=== PATIENT | female | born 1990 | race Caucasian/White ===

== ENCOUNTER 2020-11-18 21:38 | Emergency (ER) | payer MEDICAID ==
[~2020-11-18] VITALS: Ht 162.6 cm; Wt 88.5 kg
--- NOTE | 2020-11-18 21:52 | NUR ---
pt bibself c/o left flank pain that radiates to left groin since 0900 this morning with nausea. Pt aaox4 breathing evenly and unlabored. Pt skin is warm, dry, and intact. Pt attached to monitor and pox. rt hand 20g initated.Blood obtained and sent to lab. pt given blanket and call light within reach
[2020-11-18] MEDS ORDERED: ONDANSETRON HCL/PF 4 MG/2 ML VIAL ONE (22:22)
[2020-11-18] MEDS ORDERED: KETOROLAC TROMETHAMINE INJ 30 MG/ML VIAL ONE (22:23)
[2020-11-18] MEDS ORDERED: IV NS 0.9% 1,000 ML BAG IV ONE (22:30)
[2020-11-18] MEDS ORDERED: ONDANSETRON HCL/PF 4 MG/2 ML VIAL IV ONE (22:30)
[2020-11-18] MEDS ORDERED: KETOROLAC TROMETHAMINE INJ 30 MG/ML VIAL IV ONE (22:30)
[2020-11-18 22:40] LABS: BASOPHILS # (AUTO) 0.1 /CMM (0.0-0.2); BASOPHILS % (AUTO) 1.2 % (0.0-2.0); EOSINOPHILS % (AUTO) 2.3 % (0.0-6.0); HEMATOCRIT 39 % (33-45); HEMOGLOBIN 13.6 g/dL (11.5-14.8); LYMPHOCYTES # (AUTO) 4.2 /CMM (0.8-4.8); LYMPHOCYTES % (AUTO) 42.4 % (20.0-44.0); MEAN CORPUSCULAR HGB CONC 35 g/dl (31.0-36.0); MEAN CORPUSCULAR VOLUME 95 fL (82-100); MONOCYTES # (AUTO) 0.7 /CMM (0.1-1.30); MONOCYTES % (AUTO) 7.1 % (2.0-12.0); NEUTROPHILS # (AUTO) 4.7 /CMM (1.8-8.9); PLATELET COUNT (AUTO) 302 /CMM (150-450); RED BLOOD CELL COUNT(AUTO) 4.17 MIL/uL (4.0-5.2)
--- NOTE | 2020-11-18 22:41 | NUR ---
called lab for f/u urine results.
[2020-11-18 22:47] LABS: BILIRUBIN,URINE NEGATIVE (NEGATIVE); COLOR,URINE YELLOW (YELLOW); LEUKOCYTE ESTERASE ,URINE NEGATIVE (NEGATIVE); NITRITE, URINE NEGATIVE (NEGATIVE); PH,URINE 5.5 (5.0-8.0); PROTEIN,URINE 30 mg/dl (NEGATIVE); UGLUCOSE NEGATIVE (NEGATIVE); UROBILINOGEN,URINE 0.2 EU/dL (0.2)
[2020-11-18 22:58] LABS: CALCIUM, SERUM 9.1 mg/dL (8.5-10.1); CREATININE 0.9 mg/dL (0.6-1.3); POTASSIUM 3.5 mmol/L (3.5-5.1)
[2020-11-18 23:10] LABS: BILIRUBIN,DIRECT 0.1 mg/dL (0.0-0.2); BILIRUBIN,TOTAL 0.3 mg/dL (0.2-1.0); TOTAL PROTEIN, SERUM 7.4 g/dL (6.4-8.2)
--- NOTE | 2020-11-18 23:16 | NUR ---
CALLED LAB REGARDING BLOOD WORK.
[2020-11-18 23:25] LABS: RBC,URINE 51-80 /HPF (0-2)
[2020-11-18 23:26] LABS: BACTERIA,URINE Moderate /HPF (None Seen); MUCUS,URINE Moderate /LPF (None Seen); SQUAMOUS EPITHELIAL CELL,UR Moderate /HPF (None Seen)
--- NOTE | 2020-11-18 23:32 | NUR ---
taken to ct
--- NOTE | 2020-11-18 23:38 | NUR ---
returned from ct
[2020-11-19] MEDS ORDERED: HYDR-4303 PO (00:02)
--- NOTE | 2020-11-19 00:34 | NUR ---
Patient discharged to home in stable condition. Written and verbal after care instructions given. Patient verbalizes understanding of instruction. IV removed. Catheter intact and site benign. Pressure and 4x4 applied to site. No bleeding noted. Pt ambulatory with a steady gait
[2020-11-19 00:39] VITALS: BP 124/85
== END 2020-11-19 00:34 | disposition home or self-care (01) ==
LOC: ER 21:38
DX: R10.32 Left lower quadrant pain (principal); Z91.040 Latex allergy status
CPT/HCPCS: 36415; 74176; 80048; 80076; 81001; 83690; 84703; 85025; 87086; 96361; 96374; 96375; 99284; J1885; J2405; J7030

== ENCOUNTER 2021-02-09 10:02 | Emergency (ER) | payer OTHER ==
[~2021-02-09] VITALS: Ht 162.6 cm; Wt 95.3 kg
[~2021-02-09 10:02] MED LIST: HYDR-4303 PO
[2021-02-09 10:13] VITALS: BP 126/83
[2021-02-09] MEDS ORDERED: ACETAMINOPHEN ES 500 MG TABLET ONE (10:43)
[2021-02-09] MEDS ORDERED: IBUPROFEN 600 MG TABLET ONE (10:44)
[2021-02-09] MEDS ORDERED: IBUPROFEN 600 MG TABLET PO ONE (11:00)
[2021-02-09] MEDS ORDERED: ACETAMINOPHEN ES 500 MG TABLET PO ONE (11:00)
--- NOTE | 2021-02-09 11:52 | NUR ---
Patient discharged to home in stable condition. Written and verbal after care instructions given. Patient verbalizes understanding of instruction.
== END 2021-02-09 11:52 | disposition home or self-care (01) ==
LOC: ER 10:09
DX: M51.36 Other intervertebral disc degeneration, lumbar region (principal); Z91.040 Latex allergy status
CPT/HCPCS: 72110-TC; 84703-TC

== ENCOUNTER 2021-07-01 16:49 | Emergency (ER) | payer OTHER ==
[~2021-07-01] VITALS: Ht 162.6 cm; Wt 90.7 kg
[2021-07-01 17:10] VITALS: BP 132/84
[2021-07-01] MEDS ORDERED: ACETAMINOPHEN 325 MG TABLET ONE (17:39)
--- NOTE | 2021-07-01 17:48 | NUR ---
DPatient discharged to home in stable condition. Written and verbal after care instructions given. Patient verbalizes understanding of instruction.
[2021-07-01] MEDS ORDERED: ACETAMINOPHEN 325 MG TABLET PO ONE (18:00)
== END 2021-07-01 17:48 | disposition home or self-care (01) ==
LOC: ER 17:04
DX: U07.1 COVID-19 (principal); Z20.822 Contact with and (suspected) exposure to COVID-19; J45.909 Unspecified asthma, uncomplicated; Z91.040 Latex allergy status
CPT/HCPCS: 87426; 87804; 99283; C9803; U0003

== ENCOUNTER 2021-12-15 06:44 | Emergency (ER) | payer OTHER ==
[~2021-12-15] VITALS: Ht 162.6 cm; Wt 90.7 kg
--- NOTE | 2021-12-15 07:03 | NUR ---
BIBS C/O CHRONIC BACK PAIN SINCE FRIDAY. [employer] NO RELIEF. PATIENT ALERT AND ORIENTED X3. AMBULATORY WITH NON LABORED BREATHING IN BED 02 AWAITING MD GANT.
[2021-12-15] MEDS ORDERED: KETOROLAC TROMETHAMINE 15 MG/ML VIAL ONE (07:20)
[2021-12-15] MEDS ORDERED: HYDROCODONE/APAP 5/325MG TABLET ONE (07:21)
[2021-12-15] MEDS ORDERED: CYCLOBENZAPRINE 10 MG TABLET ONE (07:21)
[2021-12-15] MEDS ORDERED: HYDR-4303 PO (07:29)
[2021-12-15] MEDS ORDERED: CYCL5TAB PO (07:29)
[2021-12-15] MEDS ORDERED: PRED20TA PO (07:29)
[2021-12-15] MEDS ORDERED: HYDROCODONE/APAP 5/325MG TABLET PO ONE (07:30)
[2021-12-15] MEDS ORDERED: KETOROLAC TROMETHAMINE INJ 30 MG/ML VIAL IM ONE (07:30)
[2021-12-15] MEDS ORDERED: CYCLOBENZAPRINE 10 MG TABLET PO ONE (07:30)
--- NOTE | 2021-12-15 07:42 | NUR ---
Patient discharged to home in stable condition. Written and verbal after care instructions given. Patient verbalizes understanding of instruction.
[2021-12-15 07:44] VITALS: BP 117/82
== END 2021-12-15 07:44 | disposition home or self-care (01) ==
LOC: ER 06:48
DX: G89.29 Other chronic pain (principal); M54.41 Lumbago with sciatica, right side; M51.36 Other intervertebral disc degeneration, lumbar region; J45.909 Unspecified asthma, uncomplicated; Z88.8 Allergy status to other drugs, medicaments and biological substances; Z79.899 Other long term (current) drug therapy
CPT/HCPCS: 96372; 99283; J1885

== ENCOUNTER 2022-05-12 19:59 | Emergency (ER) | payer OTHER ==
[~2022-05-12] VITALS: Ht 162.6 cm; Wt 88.5 kg
[~2022-05-12 19:59] MED LIST changes: +CYCL5TAB PO; +PRED20TA PO
--- NOTE | 2022-05-12 20:45 | NUR ---
BIBS c/o headache 3 hours [employer] 7/10 pain scale.
--- NOTE | 2022-05-12 20:47 | NUR ---
URINE SAMPLE SENT TO LAB
[2022-05-12] MEDS ORDERED: KETOROLAC TROMETHAMINE INJ 30 MG/ML VIAL IV ONE (22:00)
[2022-05-12] MEDS ORDERED: PROCHLORPERAZINE EDISYLATE 10 MG/2 ML VIAL IVP ONE (22:00)
[2022-05-12] MEDS ORDERED: IV NS 0.9% 1,000 ML IV ONE (22:00)
[2022-05-12] MEDS ORDERED: diphenhydrAMINE HCL 50 MG/ML VIAL IV ONE (22:00)
--- NOTE | 2022-05-12 22:41 | NUR ---
RHAND IV #20G INSERTED
[2022-05-12] MEDS ORDERED: diphenhydrAMINE HCL 50 MG/ML VIAL ONE (22:47)
[2022-05-12] MEDS ORDERED: KETOROLAC TROMETHAMINE 15 MG/ML VIAL ONE (22:47)
[2022-05-12] MEDS ORDERED: PROCHLORPERAZINE EDISYLATE 10 MG/2 ML VIAL ONE (22:47)
--- NOTE | 2022-05-12 23:37 | NUR ---
Patient discharged to home in stable condition. Written and verbal after care instructions given. Patient verbalizes understanding of instruction.
--- NOTE | 2022-05-12 23:37 | NUR ---
IV CANNULA REMOVED
[2022-05-12 23:38] VITALS: BP 117/70
== END 2022-05-12 23:39 | disposition home or self-care (01) ==
LOC: ER 20:02
DX: R51.9 Headache, unspecified (principal); J45.909 Unspecified asthma, uncomplicated; G89.29 Other chronic pain; Z88.8 Allergy status to other drugs, medicaments and biological substances; Z79.899 Other long term (current) drug therapy
CPT/HCPCS: 99284; 96374; 96375; 96361; 84703; J0780; J1200; J7030; J1885